=== PATIENT | male | born 1985 | race Caucasian/White ===

== ENCOUNTER 2016-07-16 04:02 | Emergency (ER) ==
[2016-07-16 04:33] LABS: MANUAL DIFF NEEDED? NO
[2016-07-16 04:36] LABS: BASO% 0.2 % (0.0-0.8); EOS# 0.17 X1000 (0.0-0.7); EOS% 1.9 % (0.0-10.0); HEMATOCRIT 42.3 % (42.0-52.0); HEMOGLOBIN 14.8 g/dL (14.0-18.0); LYMPH# 3.48 X1000 (1.2-3.4); LYMPH% 38.5 % (20.5-51.1); MCH 31.9 PG (27-31); MCV 91.2 FL (81-99); MONO# 1.05 X1000 (0.11-0.59); MONO% 11.6 % (1.7-9.3); NEUT% 47.8 % (42.2-75.2); PLT 184 X1000 (130-400); RBC 4.64 XMIL (4.7-6.1)
[2016-07-16] MEDS ORDERED: DUONEB (A & A) INH ONE ×2 (04:37→05:30)
[2016-07-16 04:47] LABS: INR 0.99; PROTIME 10.1 Seconds (9.2-11.7); PTT 25.9 Seconds (22.0-36.0)
[2016-07-16 04:55] LABS: AGAP 15; ALBUMIN 4.2 g/dL (3.5-5.0); ALKALINE PHOSPHATASE 62 U/L (32-122); BUN 14 mg/dL (8-22); CHLORIDE 100 mmol/L (98-107); CK PROFILE 85 U/L (24-204); COSMO 274; GOT 21 U/L (10-34); GPT 17 U/L (10-44); MAGNESIUM 1.7 mg/dL (1.5-2.7); POTASSIUM 3.7 mmol/L (3.5-5.1); SODIUM 137 mmol/L (136-145); TCO2 22 mmol/L (25-35); TOTAL BILIRUBIN 0.51 mg/dL (0.20-1.00); TOTAL PROTEIN 6.8 g/dL (6.3-8.3)
[2016-07-16] MEDS ORDERED: PERCOCET-10 PO ONE (05:04)
[2016-07-16] MEDS ORDERED: SOLU-MEDROL IM ONE (05:04)
[2016-07-16] MEDS ORDERED: TORADOL IM ONE (05:04)
--- NOTE | 2016-07-16 05:38 | PROVIDER DOCUMENTATION ---
HPI-Abdominal Pain/GI Problem - General Chief Complaint: Chest Pain Stated Complaint: CP, AMS, NUMBNESS Time Seen by Provider: 07/16/16 05:03 Source: patient Allergies/Adverse Reactions: Patient Allergies Allergy/AdvReac Type Severity Reaction Status Date / Time No Known Allergies Allergy Verified 07/16/16 04:43 Home Medications: Home Medication List Medication Instructions Recorded Confirmed Last Taken Type Albuterol Sulfate [Albuterol 18 gm IH 3-4XDAY PRN PRN #1 07/16/16 Unknown Rx Sulfate Hfa] hfa.[email or web address] Amoxicillin 875 mg PO Q8HR #20 tablet 07/16/16 Unknown Rx Famotidine [Pepcid] 20 mg PO BID #30 tablet 07/16/16 Unknown Rx Methylprednisolone [Medrol Dosepak] 4 mg PO DIRECTED #1 package 07/16/16 Unknown Rx Tramadol [Ultram] 50 mg PO TID #30 tablet 07/16/16 Unknown Rx - History of Present Illness-ABD Nature of Presenting Problems: lt side cp for one week .worse for last 3 days ..non product cough/pain on inspiration ...pt w/prior lt side ribs injury 4-5 weeks ago ..no cardiac sxs Abdominal Pain Onset Location: reports: [facility] Pain Radiation: reports: chest (lt side) Quality of Pain: reports: aching, throbbing Severity in ED: reports: moderate Onset/Duration: reports: 3 days ago Timing: reports: still present, constant, changing over time Activities at Onset: reports: light activity Exposure to sick contacts?: No Associated Symptoms: reports: anxiety, chest pain (lt side), cough, headaches, heartburn, joint pain, muscle aches, sinus congestion/drainage (for 1 week), shortness of breath, pain with inspiration. denies: diaphoresis, fatigue, fever /chills, vomiting Last BM: last night Dark Stools Present?: reports: none noticed Rectal Bleeding: reports: none Emesis Description: reports: none Bruising or Bleeding Gums?: No Similar Symptoms Previously?: No Recently seen or treated by another doctor?: No Review of Systems - Adult - REVIEW OF SYSTEMS - ADULT Constitutional: reports: see HPI All Other Systems: Reviewed and Negative Past History - Adult - PAST MEDICAL HISTORY-ADULT Review of Records: reports: Old Records Reviewed, Nursing Assessment Review, Medications Reviewed, Social history reviewed & non-contributory. Major Childhood Illnesses: reports: denies history Cardiovascular: reports: denies history Respiratory: reports: denies history Gastrointestinal: reports: diverticulosis Obstetrical/Gynecological: reports: denies history Genitourinary: reports: denies history Musculoskeletal: reports: denies history Neurological: reports: denies history Psychiatric: reports: depression Endocrine/Immune: reports: denies history Other Conditions: reports: other (diverticulitis) - PRIOR SURGERIES/PROCEDURES Surgical/Procedure History: reports: none - IMMUNIZATION STATUS Childhood Immunizations: See Nurse Assessment Flu Vaccine: See Nurse Assessment - FAMILY HISTORY Family History: reviewed, not pertinent - SOCIAL HISTORY Smoking: greater than 1 pack/day Provider spent 3-5 mins advising pt. on dangers of tobacco.: Discussed manners to quit use, and f/u contacts for add'l counseling. Substance Use: none presently/history of abuse Alcohol Use Frequency: once a week Number of drinks per typical drinking period:: 5-10 drinks Living Situation: family Physical Exam-General - PHYSICAL EXAM-ADULT Initial Vital Signs Reviewed: Yes - CONSTITUTIONAL General Appearance: appears well, alert, no apparent distress, thin, anxious - EYES Eyes: PERRL/EOMI - HEAD, EARS, NOSE, MOUTH & THROAT HENMT: normocephalic/atraumatic, moist mucous membranes, pharynx normal, pharyngeal erythema, maxillary tenderness - NECK Neck: non-tender - RESPIRATORY Respiratory: no respiratory distress, decreased breath sounds (lll), wheezing ( lll), pain on inspiration (lt side). negative: accessory muscle use - CARDIOVASCULAR Cardiovascular: normal peripheral pulses, regular rate, rhythm, no edema - GASTROINTESTINAL (ABDOMEN) Abdominal Exam: normal bowel sounds, soft, tenderness (epigastric). 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, grossly normal, no motor/sensory deficits - PSYCHIATRIC Psych/Mental Status: normal mood/affect, oriented x 3, anxious Progress - REASSESSMENT Reassessment #1 Time Reassessed: 05:39 Status: improving - EKG 1 Time of EKG reading by physician:: 20:00 EKG Interpretation (*Must complete 3 of following elements*): Normal Rate: 66 Rhythm: snr [place]: normal QRS: NSIVCD Prior EKG Comparison: no prior EKG Departure - Departure Time of Disposition Order: 05:41 DIAGNOSIS: Left-sided chest wall pain, Pleurisy, Wheezing on auscultation Disposition: HOME 01 Certified Medical Emergency: Emergent Condition: Stable Additional Instructions: ED Follow Up Instructions: You have been treated by a care provider in the Emergency Department. These instructions are being provided to you so you can have an understanding of how to care for yourself upon discharge. Upon discharge from the Emergency Department, you are responsible for making arrangements for follow-up care by a physician of your choice. Take all prescribed medications as directed. Return to the Emergency Department immediately for any new or worsening symptoms. You may call the Physician Referral phone number at [phone] to obtain a list of Physicians who are taking new patients. Prescriptions: Albuterol Sulfate [Albuterol Sulfate Hfa] 18 gm IH 3-4XDAY PRN PRN #1 hfa.[email or web address] PRN Reason: Wheezing Amoxicillin 875 mg PO Q8HR #20 tablet Methylprednisolone [Medrol Dosepak] 4 mg PO DIRECTED #1 package Famotidine [Pepcid] 20 mg PO BID #30 tablet Tramadol [Ultram] 50 mg PO TID #30 tablet Referrals: None,PCP [Primary Care Provider] -
[2016-07-16 06:01] VITALS: BP 145/84
--- NOTE | 2016-07-16 09:01 | ED EKG INTERP ---
EKG Interpretation - EKG Time of EKG reading by physician:: 04:14 EKG Read and Signed by:: Rodrigo Haney EKG Interpretation (*Must complete 3 of following elements*): Normal Rate: 66 Rhythm: NSR [place]: normal QRS: normal [place] Interval: normal ST Wave: normal
--- NOTE | 2016-07-16 09:18 | Diag Imaging Result Document ---
PROCEDURE NAME: CHEST-2 VIEWS - 07/16/2016 PA AND LATERAL RADIOGRAPH OF THE CHEST: COMPARISON: 06/15/2016. FINDINGS: The lungs are grossly clear. There is no discrete pleural fluid collection or evidence of pneumothorax. The cardiomediastinal silhouette and upper airway are grossly unremarkable. IMPRESSION: No evidence of acute chest pathology.
--- NOTE | 2016-07-16 10:23 | EKG Report ---
Test Performed on : 07/16/2016 04:14:36 AM Test Reason : CP Blood Pressure : / mmHG Vent. Rate : 066 BPM Atrial Rate : 066 BPM P-R Int : 154 ms QRS Dur : 098 ms QT Int : 406 ms P-R-T Axes : 051 064 062 degrees QTc Int : 425 ms Normal sinus rhythm. with sinus arrhythmia. Normal ECG When compared with ECG of 10-SEP-2014 02:25, Vent. rate has decreased BY 38 BPM Unconfirmed Result
== END 2016-07-16 06:01 | disposition home or self-care (01) ==
LOC: ED 04:02
DX: R09.1 Pleurisy (principal); R07.89 Other chest pain; R10.12 Left upper quadrant pain; R06.2 Wheezing; R10.13 Epigastric pain; R05 Cough; R51 Headache; R12 Heartburn; M79.1 Myalgia; R09.81 Nasal congestion; R06.02 Shortness of breath; F17.210 Nicotine dependence, cigarettes, uncomplicated; Z71.6 Tobacco abuse counseling
CPT/HCPCS: 71020; 80053; 82550; 83735; 83880; 84484; 85025; 85379; 85610; 85730; 93005; 94640; J1885; J2930